=== PATIENT | female | born 1935 | race Caucasian/White ===

== ENCOUNTER → 2017-07-05 | Outpatient (CLI) | payer BC ==
[~2017-07-05] MED LIST: ASPI81TA28 PO; CHOL100010 PO; COEN10CA4 PO; DILT120C68 PO; GLUC500T35 PO; MULTCHW PO; SYN75 PO
--- NOTE | 2017-07-05 16:09 | MAMMOGRAPHY REPORT ---
BILATERAL DIGITAL SCREENING MAMMOGRAM WITH CAD: 07/05/2017 CLINICAL HISTORY: Routine screening. Patient has no complaints. TECHNIQUE: Current study was also evaluated with a Computer Aided Detection (CAD) system. Bilateral CC and MLO views were obtained. COMPARISON: Comparison is made to exams dated: 07/04/2016 mammogram - [facility], mammogram, 11/24/2013 mammogram, and 08/06/2012 mammogram. BREAST COMPOSITION: The tissue of both breasts is heterogeneously dense, which may obscure small mas ses. FINDINGS: No suspicious masses, calcifications, or areas of architectural distortion are noted in ei ther breast. There has been no significant interval change compared to prior exams. Bilateral benign appearing calcifications are not significantly changed. IMPRESSION: ACR BI-RADS CATEGORY 2: BENIGN There is no mammographic evidence of malignancy. A 1 year screening mammogram is recommended. The pa tient will receive written notification of the results. Approximately 10% of breast cancers are not detected with mammography. A negative mammographic report should not delay biopsy if a clinically suggestive mass is present. Adrienne Walker M.D. ah/:07/05/2017 13:50:21 Physical Therapist Aide: Wendy BAKER(R)(M), [facility] letter sent: Normal 1/2 BI-RADS Code: ACR BI-RADS Category 2: Benign
== END | disposition home or self-care (01) ==
LOC: C.MAMM 13:04
PROVIDERS: ATTEND Family Medicine
DX: Z12.31 Encounter for screening mammogram for malignant neoplasm of breast (principal)

== ENCOUNTER 2025-05-12 06:49 | Observation (INO) ==
--- NOTE | 2025-05-12 07:03 | Emergency Department Note ---
Impression & Plan Chest pain, Abnormal EKG ED Provider Note NAME: DAKSHA HUMPHREY AGE: 89 SEX: F : 1935 ARRIVES VIA: Walk-In INFORMANT: Patient, ED PROVIDER(S): Zeferino Lozano DO CHIEF COMPLAINT: Chest pain HPI: The patient is an 89-year-old female who presented to the emergency department for an evaluation of chest pain. Patient describes anterior chest pain that she describes as a pressure. Patient denies having any nausea or vomiting. She denies having any shortness of breath at this time. She has had no leg swelling. She states she noticed the pain last night before she went to bed. She was able to go to bed but when she woke she still the pain so she decided to come to the emergency department. The patient was seen in our facility earlier this month for back pain. She states that that has since resolved and she notices no back pain or radiation of the chest pain at this time. ROS: See above HPI for pertinent positives & negatives. A total of 10 systems reviewed and were otherwise negative. PAST MEDICAL HISTORY: See Below PAST SURGICAL HISTORY: See Below FAMILY HISTORY: See Below SOCIAL HISTORY: See Below HOME MEDICATIONS: See Below ALLERGIES: See Below VITALS: See Below PHYSICAL EXAMINATION: GENERAL: Patient is awake alert in no acute distress patient is resting comfortably and showing no signs of anxiety EYES: The conjunctivae are clear. The pupils are round and reactive. EARS, NOSE, MOUTH AND THROAT: The nose is without any evidence of any deformity. NECK: The neck is nontender and supple. RESPIRATORY: Normal respiratory effort is noted there is no evidence of wheezing rhonchi or rales CARDIOVASCULAR: Regular rate and rhythm noted there no murmurs rubs or gallops normal S1 normal S2. GASTROINTESTINAL: The abdomen is soft. Abdomen is nontender. MUSCULOSKELETAL/EXTREMITIES: There is no evidence of gross deformity full range of motion is noted in the hips and shoulders. SKIN: There is no obvious evidence of any rash. There are no petechiae, pallor or cyanosis noted. NEUROLOGIC: Patient is awake alert and oriented x3. Gait was steady. MEDICAL DECISION MAKING: The patient is an 89-year-old female who presented to the emergency department for an evaluation of chest pain. The patient described anterior chest pain that she described as a pressure. The patient was treated in the emergency department with aspirin. I discussed the patient's laboratory and radiographic studies with her. I discussed the limitations of the emergency department workup for chest pain with her. Ultimately I do feel the patient may be at higher risk especially given her age and comorbidities. For this reason I discussed her condition with the on-call [facility] hospitalist. They have agreed to evaluate the patient in the emergency department for further management and disposition. Triage Nursing notes reviewed. Prior medical records reviewed Vital Signs: reviewed and remarkable for no significant abnormalities Differential diagnosis: Cardiac ischemia, aortic dissection, pulmonary embolism, pneumothorax, pneumonia, pericarditis, myocarditis, esophageal rupture, GERD, cholecystitis, pancreatitis, musculoskeletal, as well as other pathologies. ER treatment provided: See below Diagnostics interpreted by me: ECG: EKG was obtained in the emergency department. My interpretation is normal sinus rhythm at 84 bpm. There is no ectopy. Nonspecific ST abnormalities were noted. This was compared to a tracing from April 25, 2025. No changes were noted. Cardiac Monitoring: An order was placed for continuous cardiac monitoring. The monitor shows a rate of 71 bpm with sinus rhythm. Laboratory studies: As stated above and show below. Imaging studies: See below. Radiographic imaging was reviewed by myself Consultation(s): I discussed this case with Blanca who is on-call for the [facility] hospitalist group. Past Med/Surg History Problem List (Updated 05/12/25 @ 13:09 by Zeferino Lozano DO) Abnormal EKG (Acute) Chest pain (Acute) History of paroxysmal supraventricular tachycardia Chest pain Allergic rhinitis Depression follow with psychologist Hypothyroidism Mitral valve prolapse Osteoarthritis Endometrioid adenocarcinoma Acquired deviated nasal septum HTN (hypertension) (Chronic) Arthritis (Chronic) Iron deficiency (Chronic) Medical History Nasal bone fracture History of skin cancer nose, face, back areas Hx of cancer of uterus had hysterectomy and no chemo or radiation Irregular heart beat patient only knows it is benign Surgical History History of nasal surgery History of oral surgery anesthesia to repair dental implant Hx of cataract surgery right and left Hx of hysterectomy due to endometrial cancer stage 1A, was TLH/BSO - no chemo or radiation Family History Brother Asthma Son Asthma Other Allergic rhinitis FHx: heart disease Family history of high blood pressure Denies family history of Ovarian cancer Breast cancer Colorectal cancer Social History Smoking Status: Never smoker Second Hand Exposure: No; Do You Dip or Chew Tobacco: No; Hx Alcohol Use: No Hx Substance Use: No Preferred Language: Croatian Communication Ability: Effective Saw Feeder Required: No Beliefs That Will Affect Care: None marital status: Current Living Situation: Spouse current occupational status: retired Feels Safe at Home: Yes Assistive Devices: Glasses Allergies Allergies Allergy/AdvReac Type Severity Reaction Status Date / Time cat dander Allergy Intermediate SNEEZING, Verified 05/12/25 09:56 CONGESTION dog dander Allergy Intermediate SNEEZING, Verified 05/12/25 09:56 CONGESTION mold Allergy Intermediate SNEEZING, Verified 05/12/25 09:56 CONGESTION pollen extracts Allergy Mild Sneezing Unverified 05/12/25 09:56 metoprolol AdvReac Severe INCREASED Verified 05/12/25 09:56 PALPATATIONS/FEVER/CHILLS WITH ONE DOSE DUST Allergy Intermediate SNEEZING, Uncoded 05/12/25 09:56 CONGESTION MILDEW Allergy Intermediate SNEEZING, Uncoded 05/12/25 09:56 CONGESTION Unclassified Drugs Allergy Intermediate METHIOLATE Uncoded 05/12/25 09:56 = ITCHING, REDNESS, SWELLING Environmental Allergy Mild Sneezing Uncoded 05/12/25 09:56 TOOTHPASTES Allergy Unknown CERTAIN Uncoded 05/12/25 09:56 KINDS ONLY Home Meds Home Medications Medication Instructions Recorded Confirmed cholecalciferol (vitamin D3) 25 1,000 unit PO QPM 11/26/18 05/12/25 mcg (1,000 unit) capsule (Vitamin D3) coenzyme Q10 100 mg capsule 100 mg PO QPM 11/26/18 05/12/25 (CoQ-10) glucosamine-chondroitin 500 mg-400 1 cap PO QPM 11/26/18 05/12/25 mg capsule [id number] acid 0.4 1 tab PO QPM 11/26/18 05/12/25 mg-lycopene 300 mcg-lutein 250 mcg tablet (Centrum Silver) levothyroxine 50 mcg tablet 50 mcg PO QAM 12/31/23 05/12/25 acetaminophen 500 mg tablet 1,000 mg PO DIRECTED PRN Pain 05/09/24 05/12/25 (Tylenol Extra Strength) diltiazem HCl 120 mg 120 mg PO QAM 06/02/24 05/12/25 capsule,extended release 24 hr pseudoephedrine HCl 30 mg tablet 30 mg PO Q6H PRN Congestion 04/29/25 05/12/25 (Sudafed) Previous Rx's Medication Instructions Recorded cyclobenzaprine 10 mg tablet 10 mg PO TID PRN muscle spasm #10 04/25/25 tabs Results & Data (ED) Vital Signs Vital Signs - 24 hr 05/12/25 06:52 05/12/25 07:24 05/12/25 08:09 Temperature 36.2 C L Temperature Source Temporal Artery Scan Pulse Rate 92 H 87 Pulse Rate from SpO2 Sensor Pulse Rhythm Regular Respiratory Rate 18 18 Blood Pressure 140/93 161/94 H Blood Pressure Mean 108 126 Pulse Oximetry 94 94 Oxygen Delivery Method Room Air Room Air Sepsis New/Unexplained Change in Mental Status No Sepsis Action Taken by Nursing No Action Required 05/12/25 08:24 05/12/25 08:30 05/12/25 09:00 Temperature Temperature Source Pulse Rate 68 71 72 Pulse Rate from SpO2 Sensor 67 72 71 Pulse Rhythm Respiratory Rate 17 14 21 Blood Pressure 144/77 H 149/93 H Blood Pressure Mean 99 114 Pulse Oximetry 94 96 93 Oxygen Delivery Method Room Air Room Air Room Air Sepsis New/Unexplained Change in Mental Status Sepsis Action Taken by Nursing 05/12/25 10:00 05/12/25 10:30 05/12/25 11:30 Temperature Temperature Source Pulse Rate 79 86 71 Pulse Rate from SpO2 Sensor 75 86 72 Pulse Rhythm Respiratory Rate 15 12 18 Blood Pressure 126/95 144/94 H 138/100 Blood Pressure Mean 105 106 108 Pulse Oximetry 94 95 95 Oxygen Delivery Method Room Air Room Air Room Air Sepsis New/Unexplained Change in Mental Status Sepsis Action Taken by [facility] Medications Current Medication List: was personally reviewed by me Laboratory Data Attestation: I reviewed the patient's lab results. 05/12/25 07:05 05/12/25 07:05 Lab Results 05/12/25 05/12/25 Range/Units 07:05 09:32 WBC 8.26 (4.8-10.8) K/ul RBC 4.66 (4.20-5.40) M/uL Hgb 13.9 (12.0-16.0) g/dl Hct 41.2 (37.0-47.0) % MCV 88.4 (80.0-100.0) fL MCH 29.8 (25.0-34.0) pg MCHC 33.7 (32.0-36.0) g/dL RDW Std Deviation 46.8 H (36.4-46.3) fL RDW Coeff of Nicolle 14.5 (11.5-14.5) % Plt Count 383 (130-400) K/uL MPV 8.4 L (9.4-12.4) fL Immature Gran % (Auto) 0.2 % Neut % (Auto) 34.9 % Lymph % (Auto) 51.0 % Isabella % (Auto) 8.7 % Eos % (Auto) 4.0 % Baso % (Auto) 1.2 % Neut # (Auto) 2.88 (1.40-6.50) K/uL Lymph # (Auto) 4.21 H (1.20-3.40) K/uL Isabella # (Auto) 0.72 H (0.11-0.59) K/uL Eos # (Auto) 0.33 (0.00-0.50) K/uL Baso # (Auto) 0.10 (0.00-0.20) K/uL Immature Gran # (Auto) 0.02 (0.01-0.20) K/uL PT 10.2 (9.0-12.0) Seconds INR 0.9 (0.9-1.1) APTT 27 (21-31) Seconds PTT Ratio 1.0 Sodium 140 (136-145) mmol/L Potassium 3.6 (3.5-5.1) mmol/L Chloride 106 (98-107) mmol/L Carbon Dioxide 27 (21-32) mmol/L Anion Gap 7 (3-11) BUN 23 (6-23) mg/dl Creatinine 1.13 (0.6-1.2) mg/dl Est Cr Clr Drug Dosing 30.4 ml/min eGFR 46.51 BUN/Creatinine Ratio 20.4 H (10-20) Glucose 90 (70-99(Fasting)) mg/dl Calcium 9.7 (8.6-10.3) mg/dl Total Bilirubin 0.7 (0.2-1.0) mg/dl AST 22 (13-39) U/L ALT 15 (7-52) U/L Alkaline Phosphatase 73 (34-104) U/L Troponin I High Sens 6.9 5.0 (0-14) pg/ml Total Protein 7.4 (6.0-8.3) gm/dl Albumin 4.3 (3.4-5.0) gm/dl Globulin 3.1 (2.5-4.0) gm/dl Albumin/Globulin Ratio 1.4 (0.9-2) Lipase 18 (11-82) U/L Administered Medications Discontinued Medications Al Hydrox/Mg Hydrox/Simethicone (Aluminum/Magnesium Susp 30 Ml Udc) 30 ml PO NOW STA Stop: 05/12/25 06:59 Last Admin: 05/12/25 07:13 Dose: 30 ml Documented By: ELOY Aspirin (Aspirin Chew 324 Mg) 324 mg PO NOW STA Stop: 05/12/25 06:59 Last Admin: 05/12/25 07:13 Dose: 324 mg Documented By: ELOY Imaging Data Attestation: I personally reviewed and interpreted this imaging study as follows: My Impression: 1 view chest x-ray was obtained in the emergency department. My interpretation is no free air or definite infiltrate, final report below. Radiologist's Impression: Chest X-Ray 05/12/25 06:58 EXAM: XR chest 1V portable CLINICAL HISTORY: Chest pain, nonspecific. TECHNIQUE: An X-ray image of the chest is obtained in AP projection. COMPARISON: Study dated 07/07/2024 FINDINGS: Pulmonary Parenchyma: No evidence of consolidation, collapse, or focal opacities. No pulmonary nodules are identified. No evidence of pleural effusion or pleural thickening. Heart and Mediastinum: Cardiomegaly, unchanged Bony Thorax: Bilateral glenohumeral and acromioclavicular arthropathy Bony thorax appears intact without fractures or deformities. Soft Tissues: Soft tissues overlying the chest wall are unremarkable. IMPRESSION: 1. No acute cardiopulmonary abnormalities are identified. 2. No interval changes. Electronically signed by Smooth Brandt 05-12-2025 07:53 AM Discharge Plan Visit Data Chief Complaint: Chest Pain Stated Complaint: CHEST PAIN ED Provider: Zeferino Lozano Discharge Problem: Chest pain, Abnormal EKG Patient Disposition: Being Evaluated by Hospitalist Condition: Good Forms Stand Alone Forms: My [facility] Prescriptions Prescriptions: No Action pseudoephedrine HCl [Sudafed] 30 mg tablet 30 mg PO Q6H PRN (Reason: Congestion) glucosamine-chondroitin 500-400 mg Capsule 1 cap PO QPM cholecalciferol (vitamin D3) [Vitamin D3] 1,000 unit Capsule 1,000 unit PO QPM coenzyme Q10 [CoQ-10] 100 mg Capsule 100 mg PO QPM Centrum Silver 0.4-300-250 mg-mcg-mcg Tablet 1 tab PO QPM levothyroxine 50 mcg tablet 50 mcg PO QAM acetaminophen [Tylenol Extra Strength] 500 mg Tablet 1,000 mg PO DIRECTED PRN (Reason: Pain) cyclobenzaprine 10 mg tablet 10 mg PO TID PRN (Reason: muscle spasm) Qty: 10 0RF diltiazem HCl 120 mg capsule,extended release 24hr 120 mg PO QAM Referrals Referrals: Marilin Van MD [Primary Care Provider] -
[2025-05-12] MEDS: ASPIRIN CHEW 324 MG PO STA (07:13)
[2025-05-12] MEDS: ALUMINUM/MAGNESIUM SUSP 30 ML UDC PO STA ×2 (07:13→14:57)
[2025-05-12 07:38] LABS: Hematocrit (blood only) 41.2 % (37.0-47.0); Hemoglobin 13.9 g/dl (12.0-16.0); Mean Corpuscular Hemoglobin 29.8 pg (25.0-34.0); Mean Corpuscular Volume 88.4 fL (80.0-100.0); Platelet Count 383 K/uL (130-400); RDW Standard Deviation 46.8 fL (36.4-46.3); Red Blood Count 4.66 M/uL (4.20-5.40); White Blood Count 8.26 K/ul (4.8-10.8)
--- NOTE | 2025-05-12 07:54 | XRay Report ---
EXAM: XR chest 1V portable CLINICAL HISTORY: Chest pain, nonspecific. TECHNIQUE: An X-ray image of the chest is obtained in AP projection. COMPARISON: Study dated 07/07/2024 FINDINGS: Pulmonary Parenchyma: No evidence of consolidation, collapse, or focal opacities. No pulmonary nodules are identified. No evidence of pleural effusion or pleural thickening. Heart and Mediastinum: Cardiomegaly, unchanged Bony Thorax: Bilateral glenohumeral and acromioclavicular arthropathy Bony thorax appears intact without fractures or deformities. Soft Tissues: Soft tissues overlying the chest wall are unremarkable. IMPRESSION: 1. No acute cardiopulmonary abnormalities are identified. 2. No interval changes. Electronically signed by Smooth Brandt 05-12-2025 07:53 AM
[2025-05-12 07:59] LABS: Alanine Aminotransferase 15.0 U/L (7-52); Albumin Globulin Ratio 1.4 (0.9-2); Alkaline Phosphatase 73.0 U/L (34-104); Anion Gap 7.0 (3-11); Bilirubin,Total 0.7 mg/dl (0.2-1.0); Blood Urea Nitrogen 23.0 mg/dl (6-23); Calcium 9.7 mg/dl (8.6-10.3); Carbon Dioxide 27.0 mmol/L (21-32); Chloride 106.0 mmol/L (98-107); Creatinine Clr Calc Pharmacy 30.4 ml/min; Globulin 3.1 gm/dl (2.5-4.0); Glucose 90.0 mg/dl (70-99(Fasting)); Lipase 18.0 U/L (11-82); Potassium 3.6 mmol/L (3.5-5.1); Sodium 140.0 mmol/L (136-145); Total Protein 7.4 gm/dl (6.0-8.3)
[2025-05-12 08:06] LABS: Immature Granulocytes # (auto) 0.02 K/uL (0.01-0.20); Immature Granulocytes % (auto) 0.2 %
[2025-05-12 08:09] LABS: INR 0.9 (0.9-1.1); Partial Thromboplastin Time 27 Seconds (21-31); Prothrombin Time 10.2 Seconds (9.0-12.0)
--- NOTE | 2025-05-12 12:16 | Hospitalist Consultation ---
Date of Consultation May 12, 2025 Assessment & Plan Plan Patient is an 89-year-old female with past medical history of hypothyroidism, paroxysmal SVT, mitral valve prolapse, endometrial adenocarcinoma, hypertension, iron deficiency anemia. Patient presented due to chest pressure that persisted throughout the night to have a cardiac evaluation. #chest pain - chest pain vs GERD. EKG showed NSR, no ischemic changes. No notable arrhythmias on telemetry while in ED. Troponin 6.9 -> 5.0. Heart score 2 (age). YOUSIF risk score 1 (age). - ASA chew 324mg PO given in ED - Maalox 30 ml PO given in ED - echocardiogram ordered Patient would like to return home if possible, seems reasonable given low risk HEART and YOUSIF score, as well as negative troponin x2. Also note pain improved with Maalox in ED. Will obtain echocardiogram, if without concerns, safe for discharge home. #GERD - patient with persistent GERD in ED after meal. Reports feeling of food being 'stuck'. - maalox with oral lidocaine ordered - repeat CXR considering food bolus after meal Dispo: Discharge home after echocardiogram History of Present Illness Reason for Consultation: Chest Pain Requesting Physician: Dr. Lozano History of Present Illness Patient is an 89-year-old female with past medical history of hypothyroidism, paroxysmal SVT, mitral valve prolapse, endometrial adenocarcinoma, hypertension, iron deficiency anemia. Patient presented due to chest pressure that persisted throughout the night to have a cardiac evaluation. Patient seen at bedside with her present. She stated that she was gardening yesterday which she felt fatigued after, this is typical for her after approximately 30 minutes of gardening work. She then had dinner and felt like she had much central chest pressure that she thought was indigestion. She went to bed as normal thinking not much of the chest pressure. When she woke up approximately 7 hours later, she noticed that it was still there, and with previously working in a cardiac rehab, she wanted to come in for further evaluation. She stated she denies any chest pain it more so feels like a pressure and is since improved with Maalox and aspirin in the ED, however still noticeable. She denies any shortness of breath, dizziness, lightheadedness, increased fatigue, chest pain/pressure with exertion recently, edema. She does not use nicotine products. She did not take her home medications this morning. She did have a similar evaluation approximately 1 year ago with negative troponins, no echocardiogram was performed at this time; it appears patient has never had an echocardiogram. EKG shows NSR with ST depressions similar to previous and artifact noted. Initial troponin 6.9, down trended to 5.0. Heart score is 2 given patient's age. CXR is negative. patient is agreeable to have echocardiogram and hopeful to discharge home this evening. Allergies Allergy/AdvReac Type Severity Reaction Status Date / Time cat dander Allergy Intermediate SNEEZING, Verified 05/12/25 09:56 CONGESTION dog dander Allergy Intermediate SNEEZING, Verified 05/12/25 09:56 CONGESTION mold Allergy Intermediate SNEEZING, Verified 05/12/25 09:56 CONGESTION pollen extracts Allergy Mild Sneezing Unverified 05/12/25 09:56 metoprolol AdvReac Severe INCREASED Verified 05/12/25 09:56 PALPATATIONS/FEVER/CHILLS WITH ONE DOSE DUST Allergy Intermediate SNEEZING, Uncoded 05/12/25 09:56 CONGESTION MILDEW Allergy Intermediate SNEEZING, Uncoded 05/12/25 09:56 CONGESTION Unclassified Drugs Allergy Intermediate METHIOLATE Uncoded 05/12/25 09:56 = ITCHING, REDNESS, SWELLING Environmental Allergy Mild Sneezing Uncoded 05/12/25 09:56 TOOTHPASTES Allergy Unknown CERTAIN Uncoded 05/12/25 09:56 KINDS ONLY Home Medications Medication Instructions Recorded Confirmed Type cholecalciferol (vitamin D3) 25 1,000 unit PO QPM 11/26/18 05/12/25 History mcg (1,000 unit) capsule (Vitamin D3) coenzyme Q10 100 mg capsule 100 mg PO QPM 11/26/18 05/12/25 History (CoQ-10) glucosamine-chondroitin 500 mg-400 1 cap PO QPM 11/26/18 05/12/25 History mg capsule [id number]-nvvoq acid 0.4 1 tab PO QPM 11/26/18 05/12/25 History mg-lycopene 300 mcg-lutein 250 mcg tablet (Centrum Silver) levothyroxine 50 mcg tablet 50 mcg PO QAM 12/31/23 05/12/25 History acetaminophen 500 mg tablet 1,000 mg PO DIRECTED PRN Pain 05/09/24 05/12/25 History (Tylenol Extra Strength) diltiazem HCl 120 mg 120 mg PO QAM 06/02/24 05/12/25 History capsule,extended release 24 hr cyclobenzaprine 10 mg tablet 10 mg PO TID PRN muscle spasm #10 04/25/25 05/12/25 Rx tabs pseudoephedrine HCl 30 mg tablet 30 mg PO Q6H PRN Congestion 04/29/25 05/12/25 History (Sudafed) Patient History Medical History Nasal bone fracture History of skin cancer nose, face, back areas Hx of cancer of uterus had hysterectomy and no chemo or radiation Irregular heart beat patient only knows it is benign Surgical History History of nasal surgery History of oral surgery anesthesia to repair dental implant Hx of cataract surgery right and left Hx of hysterectomy due to endometrial cancer stage 1A, was TLH/BSO - no chemo or radiation Family History Brother Asthma Son Asthma Other Allergic rhinitis FHx: heart disease Family history of high blood pressure Denies family history of Ovarian cancer Breast cancer Colorectal cancer Social History Smoking Status: Never smoker Second Hand Exposure: No; Do You Dip or Chew Tobacco: No; Hx Alcohol Use: No Hx Substance Use: No Preferred Language: Italian Communication Ability: Effective Director Internal Control Required: No Beliefs That Will Affect Care: None marital status: Current Living Situation: Spouse current occupational status: retired Feels Safe at Home: Yes Assistive Devices: Glasses Review of Systems Review of Systems: see HPI Physical Exam Physical Exam: The patient is awake, alert and oriented 3, well developed and well nourished, normocephalic and atraumatic, in no acute distress. Non-toxic appearing. HEENT- EOMI, mucous membranes moist. Hearing grossly intact. Heart-normal S1 and S2. No murmurs, rubs or gallops. Lungs-clear bilaterally, no respiratory distress, no accessory muscle use. Abdomen-normal bowel sounds and soft. No ascites noted. Non-tender. Extremities- no clubbing, cyanosis, or edema. Rheumatologic-normal range of motion. Psychiatric-normal affect. Results & Data Results & Data Vital Signs (Past 12 Hours) Vital Signs Temp Pulse Resp BP Pulse Ox O2 Del Method 05/12/25 11:30 71 18 138/100 95 Room Air 05/12/25 10:30 86 12 144/94 H 95 Room Air 05/12/25 10:00 79 15 126/95 94 Room Air 05/12/25 09:00 72 21 149/93 H 93 Room Air 05/12/25 08:30 71 14 144/77 H 96 Room Air 05/12/25 08:24 68 17 94 Room Air 05/12/25 08:09 161/94 H 05/12/25 07:24 87 18 94 Room Air 05/12/25 06:52 36.2 C L 92 H 18 140/93 94 Room Air Laboratory Results Reviewed CBC, PT/INR, CMP, troponin Diagnostic Findings reviewed CXR Medications Administered EDMaalox 30 mL p.o., aspirin 324 Mg p.o. ECG Additional Comments: NSR, some artifact noted Rate 84 QTc 418 PG Care Time/CCT Total # of Minutes Spent Total Time Spent with Patient: Total time spent is greater than 50% in coordination of care (as documented) at patient's floor/unit and/or counseling patient: Coding Level of Care Code 61127 IN/OBS CONSULT LVL 5,80M
[2025-05-12] MEDS: FAMOTIDINE 20MG IV PUSH 20 MG/5 ML SYR IV STA ×2 (14:20→16:39)
[2025-05-12] MEDS: LIDOCAINE VISCOUS 2% 15 ML UDC MT ONE (14:56)
--- NOTE | 2025-05-12 15:34 | XRay Report ---
XR chest 1V portable CLINICAL HISTORY: Food bolus COMPARISON STUDY: 05/12/2025 FINDINGS: Heart size and pulmonary vasculature are normal. No consolidation or pleural effusion. No p neumothorax. IMPRESSION: No acute findings. ACT 112: Negative or not required by law. Electronically signed by: Hernesto Ga M.D. 05/12/2025 3:32 PM
--- NOTE | 2025-05-12 16:14 | History & Physical Report ---
<Statement entered by Joi Ruiz MD - 05/12/25 16:55> 89 y/o woman with hypertension and history of PSVT on diltiazem who came to ED with chest pressure. Onset was after a meal last night. Substernal/lower sternal feels like it goes to the back and that she can't swallow. Slept last night but on awakening pain was present again. Has had recent ED visits for the same, had resolved after nitro. Treated with maalox, IV pepcid, GI cocktail with maalox and lidocaine. Despite this has had recurrent and persistent symptoms. Symptoms recurred after trying to eat 2 bites of lunch. Feels like she cannot get maalox pills or food down. Gave SL NTG 0.4 and was hypertensive at the time, BP dropped to 90s. Presentation is consistent with esophageal dysphagia or spasm. Serial EKGs which I personally reviewed and HS-troponin without evidence of ACS, low risk for MACE and TTE pending. Not hypoxic and not dyspneic. Aortic dissection or PE is unlikely cause of her chest pain. At time of my exam she was comfortable, sitting on EOB, AOx4, lungs CTAB and normal WOB, heart regular without mrg, no chest wall or abdominal tenderness, NABS. A/P: Esophageal dysphagia / esophageal spasm - could have food impaction or pill esophagitis, esophagitis or ulcer, anatomical problem such as ring web or stricture. Denies chronic GERD symptoms and not on PPI/H2 at baseline -ntg, maalox and pepcid IV have not resolved, currently severe pain so will use IV morphine if BP adequate -continue bid IV PPI -consult gastroenterology -clears, npo after midnight HTN -has been hypertensive because she did not take dilt this AM, now hypotensive p nitro and getting IV fluids Date of Service May 12, 2025 Assessment & Plan (1) GERD (gastroesophageal reflux disease): (2) Esophageal dysmotility: (3) Chest pain: Plan * addendum - BP dropped to 90/55 after nitroglycerin, NSS 500 mL bolus ordered. Patient with persistent pain, additional 20mg IV Pepcid ordered as well as pantoprazole 40mg IV. Patient with persistent intolerable pain, unable to tolerate PO intake, 2mg IV morphine ordered - will add prn overnight. Patient is an 89-year-old female with past medical history of hypothyroidism, paroxysmal SVT, mitral valve prolapse, endometrial adenocarcinoma, hypertension, iron deficiency anemia. Patient presented due to chest pressure that persisted throughout the night to have a cardiac evaluation however determined patient's symptoms are more concerning for esophageal spasm and admitting for GI workup. #GERD - patient with persistent GERD in ED after meal. Reports feeling of food being 'stuck'. Patient without significant history of GERD and with sudden onset 05/11. - maalox with oral lidocaine and SL Nitroglycerin ordered to assist with likely esophageal spasm - repeat CXR considering food bolus after meal negative - GI consulted - IV Protonix BID ordered - clear diet - NPO after midnight - hold nonessential PO medications #chest pain - chest pain vs GERD. EKG showed NSR, no ischemic changes. No notable arrhythmias on telemetry while in ED. Troponin 6.9 -> 5.0. Heart score 2 (age). YOUSIF risk score 1 (age). - ASA chew 324mg PO given in ED - Maalox 30 ml PO given in ED - echocardiogram ordered #paroxysmal SVT/ HTN - continue diltiazem VTE ppx: SCDs, low risk Dispo: med surg obs Admission and Anticipated Discharge Date Admission Date: 05/12/25 History of Present Illness Chief Complaint: chest pain Primary Care Provider: Marilin Van MD Patient is an 89-year-old female with past medical history of hypothyroidism, paroxysmal SVT, mitral valve prolapse, endometrial adenocarcinoma, hypertension, iron deficiency anemia. Patient presented due to chest pressure that persisted throughout the night to have a cardiac evaluation. Patient seen at bedside with her present. She stated that she was gardening yesterday which she felt fatigued after, this is typical for her after approximately 30 minutes of gardening work. She then had dinner and felt like she had much central chest pressure that she thought was indigestion. She went to bed as normal thinking not much of the chest pressure. When she woke up approximately 7 hours later, she noticed that it was still there, and with previously working in a cardiac rehab, she wanted to come in for further evaluation. She stated she denies any chest pain it more so feels like a pressure and is since improved with Maalox and aspirin in the ED, however still noticeable. She denies any shortness of breath, dizziness, lightheadedness, increased fatigue, chest pain/pressure with exertion recently, edema. She does not use nicotine products. She did not take her home medications this morning. She did have a similar evaluation approximately 1 year ago with negative troponins, no echocardiogram was performed at this time; it appears patient has never had an echocardiogram. EKG shows NSR with ST depressions similar to previous and artifact noted. Initial troponin 6.9, down trended to 5.0. Heart score is 2 given patient's age. CXR is negative. patient is agreeable to have echocardiogram and hopeful to discharge home this evening. patient reevaluated after lunch. With persistent GERD type symptoms and feeling of food being "stuck "in throat after lunch. she felt as though she was unable to tolerate the oral Maalox due to this feeling. Will admit and consult GI for esophageal dysmotility. Repeat CXR and EKG negative for acute changes. Allergies Allergy/AdvReac Type Severity Reaction Status Date / Time cat dander Allergy Intermediate SNEEZING, Verified 05/12/25 09:56 CONGESTION dog dander Allergy Intermediate SNEEZING, Verified 05/12/25 09:56 CONGESTION mold Allergy Intermediate SNEEZING, Verified 05/12/25 09:56 CONGESTION pollen extracts Allergy Mild Sneezing Unverified 05/12/25 09:56 metoprolol AdvReac Severe INCREASED Verified 05/12/25 09:56 PALPATATIONS/FEVER/CHILLS WITH ONE DOSE DUST Allergy Intermediate SNEEZING, Uncoded 05/12/25 09:56 CONGESTION MILDEW Allergy Intermediate SNEEZING, Uncoded 05/12/25 09:56 CONGESTION Unclassified Drugs Allergy Intermediate METHIOLATE Uncoded 05/12/25 09:56 = ITCHING, REDNESS, SWELLING Environmental Allergy Mild Sneezing Uncoded 05/12/25 09:56 TOOTHPASTES Allergy Unknown CERTAIN Uncoded 05/12/25 09:56 KINDS ONLY Home Medications Medication Instructions Recorded Confirmed Type cholecalciferol (vitamin D3) 25 1,000 unit PO QPM 11/26/18 05/12/25 History mcg (1,000 unit) capsule (Vitamin D3) coenzyme Q10 100 mg capsule 100 mg PO QPM 11/26/18 05/12/25 History (CoQ-10) glucosamine-chondroitin 500 mg-400 1 cap PO QPM 11/26/18 05/12/25 History mg capsule vznkwiis-big-[id number] acid 0.4 1 tab PO QPM 11/26/18 05/12/25 History mg-lycopene 300 mcg-lutein 250 mcg tablet (Centrum Silver) levothyroxine 50 mcg tablet 50 mcg PO QAM 12/31/23 05/12/25 History acetaminophen 500 mg tablet 1,000 mg PO DIRECTED PRN Pain 05/09/24 05/12/25 History (Tylenol Extra Strength) diltiazem HCl 120 mg 120 mg PO QAM 06/02/24 05/12/25 History capsule,extended release 24 hr cyclobenzaprine 10 mg tablet 10 mg PO TID PRN muscle spasm #10 04/25/25 05/12/25 Rx tabs pseudoephedrine HCl 30 mg tablet 30 mg PO Q6H PRN Congestion 04/29/25 05/12/25 History (Sudafed) Past Med/Surg History Problem List (Updated 05/12/25 @ 16:21 by Mindi Patino PA-C) Esophageal dysmotility GERD (gastroesophageal reflux disease) Abnormal EKG (Acute) Chest pain (Acute) History of paroxysmal supraventricular tachycardia Chest pain Allergic rhinitis Depression follow with psychologist Hypothyroidism Mitral valve prolapse Osteoarthritis Endometrioid adenocarcinoma Acquired deviated nasal septum HTN (hypertension) (Chronic) Arthritis (Chronic) Iron deficiency (Chronic) Medical History Nasal bone fracture History of skin cancer nose, face, back areas Hx of cancer of uterus had hysterectomy and no chemo or radiation Irregular heart beat patient only knows it is benign Surgical History History of nasal surgery History of oral surgery anesthesia to repair dental implant Hx of cataract surgery right and left Hx of hysterectomy due to endometrial cancer stage 1A, was TLH/BSO - no chemo or radiation Family History Brother Asthma Son Asthma Other Allergic rhinitis FHx: heart disease Family history of high blood pressure Denies family history of Ovarian cancer Breast cancer Colorectal cancer Social History Smoking Status: Never smoker Second Hand Exposure: No; Do You Dip or Chew Tobacco: No; Hx Alcohol Use: No Hx Substance Use: No Preferred Language: Maori Communication Ability: Effective Admitting Counselor Required: No Beliefs That Will Affect Care: None marital status: Current Living Situation: Spouse current occupational status: retired Feels Safe at Home: Yes Assistive Devices: Glasses Review of Systems Review of Systems: see HPI Physical Exam Physical Exam: The patient is awake, alert and oriented 3, well developed and well nourished, normocephalic and atraumatic, in no acute distress. Non-toxic appearing. HEENT- EOMI, mucous membranes moist. Hearing grossly intact. Heart-normal S1 and S2. No murmurs, rubs or gallops. Lungs-clear bilaterally, no respiratory distress, no accessory muscle use. Abdomen-normal bowel sounds and soft. No ascites noted. Non-tender. Extremities- no clubbing, cyanosis, or edema. Rheumatologic-normal range of motion. Psychiatric-normal affect. Results & Data Results & Data Vital Signs (Past 12 Hours) Vital Signs Temp Pulse Resp BP Pulse Ox O2 Del Method 05/12/25 16:00 140/108 H 05/12/25 15:48 20 140/96 95 Room Air 05/12/25 14:06 21 96 Room Air 05/12/25 14:00 139/104 H 05/12/25 13:36 70 29 H 142/102 H 93 Room Air 05/12/25 12:30 65 16 141/92 H 94 Room Air 05/12/25 11:30 71 18 138/100 95 Room Air 05/12/25 10:30 86 12 144/94 H 95 Room Air 05/12/25 10:00 79 15 126/95 94 Room Air 05/12/25 09:00 72 21 149/93 H 93 Room Air 05/12/25 08:30 71 14 144/77 H 96 Room Air 05/12/25 08:24 68 17 94 Room Air 05/12/25 08:09 161/94 H 05/12/25 07:24 87 18 94 Room Air 05/12/25 06:52 36.2 C L 92 H 18 140/93 94 Room Air Laboratory Results reviewed cbc, cmp Diagnostic Findings reviewed cxr ECG Additional Comments: NSR, some artifact noted Rate 84 QTc 418 Code Status & VTE Plan Code Status dnr/dni VTE Prophylaxis Plan VTE Prophylaxis will be ordered: Yes PG Care Time/CCT Total # of Minutes Spent Total Time Spent with Patient: Total time spent is greater than 50% in coordination of care (as documented) at patient's floor/unit and/or counseling patient: Coding Level of Care Code 55599 INT INP/OBS CARE 375MIN Diagnoses GERD (gastroesophageal reflux disease) K21.9 Esophageal dysmotility K22.4 Chest pain R07.9
[2025-05-12] MEDS: PANTOprazole 40 MG/10 ML SYR IV ONE (16:19)
[2025-05-12] MEDS: NITROGLYCERIN SL 0.4 MG/TAB TAB SL STA (16:19)
[2025-05-12] MEDS: SODIUM CHLORIDE 0.9% 500 ML IV ONE (16:39)
[2025-05-12] MEDS: MoRPHine SULFATE 2 MG/ML CARP IV STA ×2 (16:49→17:00)
[2025-05-12] MEDS: FAMOTIDINE 20MG/5ML IV PUSH IV ONE (16:58)
[2025-05-12] MEDS ORDERED: MoRPHine SULFATE 2 MG/ML CARP IV PRN (18:04)
[2025-05-12] MEDS ORDERED: ACETAMINOPHEN 1,000 MG/100 ML VIAL IV PRN (18:04)
[2025-05-12] MEDS ORDERED: ONDANSETRON INJ 2 MG/ML 2 ML VIAL IV PRN (18:04)
[2025-05-12] MEDS: PANTOprazole 40 MG/10 ML SYR IV SCH (20:18)
[2025-05-13 07:53] LABS: Hematocrit (blood only) 35.2 % (37.0-47.0); Hemoglobin 12.1 g/dl (12.0-16.0); Immature Granulocytes # (auto) 0.02 K/uL (0.01-0.20); Immature Granulocytes % (auto) 0.2 %; Mean Corpuscular Hemoglobin 30.6 pg (25.0-34.0); Mean Corpuscular Volume 88.9 fL (80.0-100.0); Platelet Count 339 K/uL (130-400); RDW Standard Deviation 46.8 fL (36.4-46.3); Red Blood Count 3.96 M/uL (4.20-5.40); White Blood Count 8.95 K/ul (4.8-10.8)
[2025-05-13 08:08] LABS: Anion Gap 7.0 (3-11); Blood Urea Nitrogen 23.0 mg/dl (6-23); Calcium 8.8 mg/dl (8.6-10.3); Carbon Dioxide 27.0 mmol/L (21-32); Chloride 106.0 mmol/L (98-107); Creatinine Clr Calc Pharmacy 32.7 ml/min; Glucose 79.0 mg/dl (70-99(Fasting)); Potassium 3.9 mmol/L (3.5-5.1); Sodium 140.0 mmol/L (136-145)
--- NOTE | 2025-05-13 10:00 | Gastrointestinal Consultation ---
Date of Consultation May 13, 2025 Assessment & Plan (1) GERD (gastroesophageal reflux disease): 89 year old female with history of hypothyroidism, paroxysmal SVT, mitral valve prolapse, endometrial adenocarcinoma, hypertension, iron deficiency anemia and others below admitted w/ chest pain/epigastric pain yesterday, resolved w/ episodes of nausea/vomiting. NPO Plan for diagnostic EGD Further recommendations/plans following EGD evaluation I spent a total of 60 minutes on the date of service in review of patient's record, and previously obtained information in person and appropriate medical visit, discussion and education of plan, with patient and/or caregiver, placing orders for tests/referral/procedures as medically necessary and documentation of pertinent clinical information in patient's medical records for their visit today. History of Present Illness Reason for Consultation: Esophageal dysmotility, gerd like sx Requesting Physician: Joi Ruiz MD Attending Physician: Joi Ruiz MD History of Present Illness 89 year old female with history of hypothyroidism, paroxysmal SVT, mitral valve prolapse, endometrial adenocarcinoma, hypertension, iron deficiency anemia and ot hesr below admitted w/ chest pain - negative cardiac workup. GI asked to evaluate. Pt was seen and evaluated, chart reviewed. Poor historian. She reports severe, epigastric pain. This has since resolved. She notes she had an episode of nausea/vomiting yesterday and felt much improved after. Denies painful or difficult swallowing. She denies EGD/Colonoscopy recently. Allergies Allergy/AdvReac Type Severity Reaction Status Date / Time cat dander Allergy Intermediate SNEEZING, Verified 05/12/25 09:56 CONGESTION dog dander Allergy Intermediate SNEEZING, Verified 05/12/25 09:56 CONGESTION mold Allergy Intermediate SNEEZING, Verified 05/12/25 09:56 CONGESTION pollen extracts Allergy Mild Sneezing Unverified 05/12/25 09:56 metoprolol AdvReac Severe INCREASED Verified 05/12/25 09:56 PALPATATIONS/FEVER/CHILLS WITH ONE DOSE DUST Allergy Intermediate SNEEZING, Uncoded 05/12/25 09:56 CONGESTION MILDEW Allergy Intermediate SNEEZING, Uncoded 05/12/25 09:56 CONGESTION Unclassified Drugs Allergy Intermediate METHIOLATE Uncoded 05/12/25 09:56 = ITCHING, REDNESS, SWELLING Environmental Allergy Mild Sneezing Uncoded 05/12/25 09:56 TOOTHPASTES Allergy Unknown CERTAIN Uncoded 05/12/25 09:56 KINDS ONLY Home Medications Medication Instructions Recorded Confirmed Type cholecalciferol (vitamin D3) 25 1,000 unit PO QPM 11/26/18 05/12/25 History mcg (1,000 unit) capsule (Vitamin D3) coenzyme Q10 100 mg capsule 100 mg PO QPM 11/26/18 05/12/25 History (CoQ-10) glucosamine-chondroitin 500 mg-400 1 cap PO QPM 11/26/18 05/12/25 History mg capsule uhhrqrww-qyz-rjwnw acid 0.4 1 tab PO QPM 11/26/18 05/12/25 History mg-lycopene 300 mcg-lutein 250 mcg tablet (Centrum Silver) levothyroxine 50 mcg tablet 50 mcg PO QAM 12/31/23 05/12/25 History acetaminophen 500 mg tablet 1,000 mg PO DIRECTED PRN Pain 05/09/24 05/12/25 History (Tylenol Extra Strength) diltiazem HCl 120 mg 120 mg PO QAM 06/02/24 05/12/25 History capsule,extended release 24 hr cyclobenzaprine 10 mg tablet 10 mg PO TID PRN muscle spasm #10 04/25/25 05/12/25 Rx tabs pseudoephedrine HCl 30 mg tablet 30 mg PO Q6H PRN Congestion 04/29/25 05/12/25 History (Sudafed) Patient History Medical History Nasal bone fracture History of skin cancer nose, face, back areas Hx of cancer of uterus had hysterectomy and no chemo or radiation Irregular heart beat patient only knows it is benign Surgical History History of nasal surgery History of oral surgery anesthesia to repair dental implant Hx of cataract surgery right and left Hx of hysterectomy due to endometrial cancer stage 1A, was TLH/BSO - no chemo or radiation Family History Brother Asthma Son Asthma Other Allergic rhinitis FHx: heart disease Family history of high blood pressure Denies family history of Ovarian cancer Breast cancer Colorectal cancer Social History Smoking Status: Never smoker Second Hand Exposure: No; Do You Dip or Chew Tobacco: No; Hx Alcohol Use: Yes Alcohol type: beer, wine and hard liquor Hx Substance Use: No Preferred Language: Peruvian Communication Ability: Effective Energy Conservation Specialist Required: No Beliefs That Will Affect Care: None marital status: Current Living Situation: Spouse current occupational status: retired Other Information That Helps Us Care for You: No Feels Safe at Home: Yes Safety Concerns: Feels Safe At This Time Assistive Devices: Glasses Review of Systems Review of Systems: All other findings negative except as noted in HPI. Physical Exam Constitutional: WD/WN, vitals as above Respiratory: normal respiratory effort, lungs clear to auscultation Gastrointestinal (Abdomen): normal bowel sounds, soft, nontender, no hepatosplenomegaly Skin: no rashes, warm and dry Results & Data Vital Signs (Past 12 Hours) Vital Signs Temp Pulse Resp BP Pulse Ox O2 Del Method 05/13/25 07:05 98.1 F 61 18 148/75 H 94 Room Air Laboratory Results 05/13/25 05/12/25 Range/Units 06:45 09:32 WBC 8.95 (4.8-10.8) K/ul RBC 3.96 L (4.20-5.40) M/uL Hgb 12.1 (12.0-16.0) g/dl Hct 35.2 L (37.0-47.0) % MCV 88.9 (80.0-100.0) fL MCH 30.6 (25.0-34.0) pg MCHC 34.4 (32.0-36.0) g/dL RDW Std Deviation 46.8 H (36.4-46.3) fL RDW Coeff of Nicolle 14.4 (11.5-14.5) % Plt Count 339 (130-400) K/uL MPV 8.8 L (9.4-12.4) fL Immature Gran % (Auto) 0.2 % Neut % (Auto) 40.8 % Lymph % (Auto) 45.3 % Swift % (Auto) 10.5 % Eos % (Auto) 2.3 % Baso % (Auto) 0.9 % Neut # (Auto) 3.65 (1.40-6.50) K/uL Lymph # (Auto) 4.05 H (1.20-3.40) K/uL Swift # (Auto) 0.94 H (0.11-0.59) K/uL Eos # (Auto) 0.21 (0.00-0.50) K/uL Baso # (Auto) 0.08 (0.00-0.20) K/uL Immature Gran # (Auto) 0.02 (0.01-0.20) K/uL Sodium 140 (136-145) mmol/L Potassium 3.9 (3.5-5.1) mmol/L Chloride 106 (98-107) mmol/L Carbon Dioxide 27 (21-32) mmol/L Anion Gap 7 (3-11) BUN 23 (6-23) mg/dl Creatinine 1.05 (0.6-1.2) mg/dl Est Cr Clr Drug Dosing 32.7 ml/min eGFR 50.79 BUN/Creatinine Ratio 21.9 H (10-20) Glucose 79 (70-99(Fasting)) mg/dl Calcium 8.8 (8.6-10.3) mg/dl Troponin I High Sens 5.0 (0-14) pg/ml PG Care Time/CCT Total # of Minutes Spent Total Time Spent with Patient: Total time spent is greater than 50% in coordination of care (as documented) at patient's floor/unit and/or counseling patient: Coding Level of Care Code 60482 INT INP/OBS CARE 2/55MIN Diagnoses GERD (gastroesophageal reflux disease) K21.9
--- NOTE | 2025-05-13 10:40 | Anesthesiology Consultation ---
Date of Service May 13, 2025 Assessment & Plan (1) Encounter for pre-operative examination: Chart Review Chart Review: Acceptable Risk for Surgery History Surgery Operation Date: 05/13/25 16:30 Proposed Procedures p Esophagogastroduodenoscopy Dr. Ryan Davis MD Height/Weight Height: 5 ft 5 in Weight: 65.4 kg Allergies Allergy/AdvReac Type Severity Reaction Status Date / Time cat dander Allergy Intermediate SNEEZING, Verified 05/12/25 09:56 CONGESTION dog dander Allergy Intermediate SNEEZING, Verified 05/12/25 09:56 CONGESTION mold Allergy Intermediate SNEEZING, Verified 05/12/25 09:56 CONGESTION pollen extracts Allergy Mild Sneezing Unverified 05/12/25 09:56 metoprolol AdvReac Severe INCREASED Verified 05/12/25 09:56 PALPATATIONS/FEVER/CHILLS WITH ONE DOSE DUST Allergy Intermediate SNEEZING, Uncoded 05/12/25 09:56 CONGESTION MILDEW Allergy Intermediate SNEEZING, Uncoded 05/12/25 09:56 CONGESTION Unclassified Drugs Allergy Intermediate METHIOLATE Uncoded 05/12/25 09:56 = ITCHING, REDNESS, SWELLING Environmental Allergy Mild Sneezing Uncoded 05/12/25 09:56 TOOTHPASTES Allergy Unknown CERTAIN Uncoded 05/12/25 09:56 KINDS ONLY Medications Home Medications Medication Instructions Recorded Confirmed Last Taken cholecalciferol (vitamin D3) 25 1,000 unit PO QPM 11/26/18 05/12/25 05/11/25 mcg (1,000 unit) capsule (Vitamin D3) coenzyme Q10 100 mg capsule 100 mg PO QPM 11/26/18 05/12/25 05/11/25 (CoQ-10) glucosamine-chondroitin 500 mg-400 1 cap PO QPM 11/26/18 05/12/25 05/11/25 mg capsule ymzfypfg-lxo-gcump acid 0.4 1 tab PO QPM 11/26/18 05/12/25 05/11/25 mg-lycopene 300 mcg-lutein 250 mcg tablet (Centrum Silver) levothyroxine 50 mcg tablet 50 mcg PO QAM 12/31/23 05/12/25 05/11/25 acetaminophen 500 mg tablet 1,000 mg PO DIRECTED PRN Pain 05/09/24 05/12/25 05/11/25 (Tylenol Extra Strength) diltiazem HCl 120 mg 120 mg PO QAM 06/02/24 05/12/25 05/11/25 capsule,extended release 24 hr cyclobenzaprine 10 mg tablet 10 mg PO TID PRN muscle spasm #10 04/25/25 05/12/25 05/11/25 tabs pseudoephedrine HCl 30 mg tablet 30 mg PO Q6H PRN Congestion 04/29/25 05/12/25 05/11/25 (Sudafed) Active Medications Generic Name Dose Route Start Last Admin Trade Name Freq PRN Reason Stop Dose Admin Diltiazem HCl 120 mg 05/13/25 09:00 05/13/25 10:27 Diltiazem Hcl 120 Mg Capcr PO 06/12/25 08:59 120 mg QAM ANUJ Administration Pantoprazole Sodium 40 mg in 10 mls @ 5 mls/min 05/12/25 21:00 05/13/25 10:29 Protonix IV 06/11/25 20:59 5 mls/min BID ANUJ Administration Past Medical History Medical History Nasal bone fracture History of skin cancer nose, face, back areas Hx of cancer of uterus had hysterectomy and no chemo or radiation Irregular heart beat patient only knows it is benign Past Family History Family History Brother Asthma Son Asthma Other Allergic rhinitis FHx: heart disease Family history of high blood pressure Denies family history of Ovarian cancer Breast cancer Colorectal cancer Past Surgical History Surgical History History of nasal surgery History of oral surgery anesthesia to repair dental implant Hx of cataract surgery right and left Hx of hysterectomy due to endometrial cancer stage 1A, was TLH/BSO - no chemo or radiation Social History Smoking Status: Never smoker Do You Dip or Chew Tobacco: No Hx Alcohol Use: Yes Alcohol type: beer, wine and hard liquor alcohol intake frequency: a few times a month Hx Substance Use: No substance use type: does not use Physical Exam Vital Signs Last Vital Signs Temp 36.7 C 05/13/25 07:05 Pulse 75 05/13/25 10:35 Resp 18 05/13/25 07:05 BP 148/75 H 05/13/25 07:05 Pulse Ox 94 05/13/25 07:05 O2 Del Method Room Air 05/13/25 07:05 O2 Flow Rate 2 05/12/25 18:05 Testing Laboratory Results 05/13/25 06:45 05/13/25 06:45 PT 10.2 Seconds (9.0-12.0) 05/12/25 07:05 INR 0.9 (0.9-1.1) 05/12/25 07:05 APTT 27 Seconds (21-31) 05/12/25 07:05 Electrocardiogram Date: 05/12/25 Findings: + NSR @ (75)
[2025-05-13] MEDS ORDERED: SIMETHICONE (ENDO) IR PRN (14:10)
--- NOTE | 2025-05-13 14:11 | History & Physical Report ---
Date of Service May 13, 2025 Assessment & Plan (1) Chest pain: Plan: Patient is safe to proceed with EGD. (2) Esophageal dysmotility: (3) GERD (gastroesophageal reflux disease): Admission and Anticipated Discharge Date Admission Date: May 12, 2025 History of Present Illness Chief Complaint: sscp and foreign body sensation Primary Care Provider: Marilin Van MD 89 y/o with non cardiac cp, foreign body sensation and gerd. EGD eval and possible dil for dysphagia. Allergies Allergy/AdvReac Type Severity Reaction Status Date / Time cat dander Allergy Intermediate SNEEZING, Verified 05/12/25 09:56 CONGESTION dog dander Allergy Intermediate SNEEZING, Verified 05/12/25 09:56 CONGESTION mold Allergy Intermediate SNEEZING, Verified 05/12/25 09:56 CONGESTION pollen extracts Allergy Mild Sneezing Unverified 05/12/25 09:56 metoprolol AdvReac Severe INCREASED Verified 05/12/25 09:56 PALPATATIONS/FEVER/CHILLS WITH ONE DOSE DUST Allergy Intermediate SNEEZING, Uncoded 05/12/25 09:56 CONGESTION MILDEW Allergy Intermediate SNEEZING, Uncoded 05/12/25 09:56 CONGESTION Unclassified Drugs Allergy Intermediate METHIOLATE Uncoded 05/12/25 09:56 = ITCHING, REDNESS, SWELLING Environmental Allergy Mild Sneezing Uncoded 05/12/25 09:56 TOOTHPASTES Allergy Unknown CERTAIN Uncoded 05/12/25 09:56 KINDS ONLY Home Medications Medication Instructions Recorded Confirmed Type cholecalciferol (vitamin D3) 25 1,000 unit PO QPM 11/26/18 05/12/25 History mcg (1,000 unit) capsule (Vitamin D3) coenzyme Q10 100 mg capsule 100 mg PO QPM 11/26/18 05/12/25 History (CoQ-10) glucosamine-chondroitin 500 mg-400 1 cap PO QPM 11/26/18 05/12/25 History mg capsule yfzqpayi-yyy-xozpv acid 0.4 1 tab PO QPM 11/26/18 05/12/25 History mg-lycopene 300 mcg-lutein 250 mcg tablet (Centrum Silver) levothyroxine 50 mcg tablet 50 mcg PO QAM 12/31/23 05/12/25 History acetaminophen 500 mg tablet 1,000 mg PO DIRECTED PRN Pain 05/09/24 05/12/25 History (Tylenol Extra Strength) diltiazem HCl 120 mg 120 mg PO QAM 06/02/24 05/12/25 History capsule,extended release 24 hr cyclobenzaprine 10 mg tablet 10 mg PO TID PRN muscle spasm #10 04/25/25 05/12/25 Rx tabs pseudoephedrine HCl 30 mg tablet 30 mg PO Q6H PRN Congestion 04/29/25 05/12/25 History (Sudafed) Past Med/Surg History Problem List (Updated 05/13/25 @ 13:24 by Kevin Hirsch MD) Esophageal dysmotility GERD (gastroesophageal reflux disease) Abnormal EKG (Acute) Chest pain (Acute) History of paroxysmal supraventricular tachycardia Chest pain Allergic rhinitis Mitral valve prolapse Osteoarthritis Endometrioid adenocarcinoma Acquired deviated nasal septum Arthritis (Chronic) Iron deficiency (Chronic) Medical History (Updated 05/13/25 @ 13:24 by Kevin Hirsch MD) Depression follow with psychologist Hypothyroidism HTN (hypertension) Nasal bone fracture History of skin cancer nose, face, back areas Hx of cancer of uterus had hysterectomy and no chemo or radiation Irregular heart beat patient only knows it is benign Surgical History History of nasal surgery History of oral surgery anesthesia to repair dental implant Hx of cataract surgery right and left Hx of hysterectomy due to endometrial cancer stage 1A, was TLH/BSO - no chemo or radiation Family History Brother Asthma Son Asthma Other Allergic rhinitis FHx: heart disease Family history of high blood pressure Denies family history of Ovarian cancer Breast cancer Colorectal cancer Social History Smoking Status: Never smoker Second Hand Exposure: No; Do You Dip or Chew Tobacco: No; Hx Alcohol Use: Yes Alcohol type: beer, wine and hard liquor Hx Substance Use: No Preferred Language: [place] Communication Ability: Effective 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 Beliefs That Will Affect Care: None marital status: Current Living Situation: Spouse current occupational status: retired Other Information That Helps Us Care for You: No Feels Safe at Home: Yes Safety Concerns: Feels Safe At This Time Assistive Devices: Cane and Walker Review of Systems All systems reviewed & are unremarkable except as noted in HPI & below Physical Exam Physical Exam: Physical Exam: General: Well nourished and well developed in NAD HEENT: EOMI, PERRL Neck: trachea midline, no lad Lungs: CTA b, bilateral bs present Heart: RRR, no M and no edema Abd: soft, NT/ND, NABS Musculoskeletal: no c/c/e, normal strength B Neuro: CN2-12 intact, normal gait, normal strength Psych: normal affect and mood, euthymic. Results & Data Vital Signs (Past 12 Hours) Vital Signs Temp Pulse Resp BP Pulse Ox O2 Del Method 05/13/25 13:13 36.5 C 76 16 176/103 H 97 Room Air 05/13/25 10:35 75 05/13/25 08:30 Room Air 05/13/25 07:05 36.7 C 61 18 148/75 H 94 Room Air Code Status & VTE Plan VTE Prophylaxis Plan VTE Prophylaxis will be ordered: Yes Coding Level of Care Code None Diagnoses Chest pain R07.9 Esophageal dysmotility K22.4 GERD (gastroesophageal reflux disease) K21.9
--- NOTE | 2025-05-13 14:55 | GI REPORT ---
[facility] Patient: DAKSHA HUMPHREY : 1935 Sex at : Female Age: 89 Years Procedure: Upper GI endoscopy Date: 05/13/2025 Attending Physician: Papito Gaviria MD Referring MD: Referred Self; Joi Ruiz Md Indications: - Dysphagia - Esophageal reflux - Chest pain (non cardiac) Medications: - Monitored Anesthesia Care Complications: - No immediate complications. Estimated Blood Loss: - Estimated blood loss: None. Procedure: - Prior to the procedure, a History and Physical was performed, and patient medications and allergies were reviewed. The patient's tolerance of previous anesthesia was also reviewed. The risks and benefits of the procedure and the sedation options and risks were discussed with the patient. All questions were answered, and informed consent was obtained. Prior Anticoagulants: The patient has taken no anticoagulant or antiplatelet agents, last dose was 3 days prior to procedure. ASA Grade Assessment: III - A patient with severe systemic disease. After reviewing the risks and benefits, the patient was deemed in satisfactory condition to undergo the procedure. - The egd scope was introduced through the mouth and advanced to the third part of the duodenum. - The upper GI endoscopy was accomplished without difficulty. - The patient tolerated the procedure well. Findings: - A small hiatal hernia was present. - LA Grade B (one or more mucosal breaks greater than 5 mm, not extending between the tops of two mucosal folds) esophagitis with no bleeding was found at the gastroesophageal junction (on retroflexion). Biopsies were taken with a cold forceps for histology. Estimated blood loss was minimal. - Patchy, white plaques were found at the gastroesophageal junction. Biopsies were taken with a cold forceps for histology. - The entire examined stomach was normal. - The examined duodenum was normal. - The examined esophagus was moderately tortuous. Dilated and tortuous esophagus with Normal LES suggestive of dysmotility and presbyesophagus. Impression: - Small hiatal hernia. - LA Grade B reflux esophagitis with no bleeding. Rule out Bishop's esophagus. Biopsied. - Esophageal plaques were found, consistent with candidiasis. Biopsied. - Normal stomach. - Normal examined duodenum. - Tortuous esophagus. - Dilated and tortuous esophagus with Normal LES suggestive of dysmotility and presbyesophagus. Recommendation: - Discharge patient to home (ambulatory). - Resume previous diet. - Continue present medications. - Await pathology results. - Return to primary care physician as previously scheduled. - Patient has a contact number available for emergencies. The signs and symptoms of potential delayed complications were discussed with the patient. Return to normal activities tomorrow. Written discharge instructions were provided to the patient. - start clotrimazole troches for tanya. Check food carefully. Start soft mechanical diet. Procedure Code(s): - 34694, Esophagogastroduodenoscopy, flexible, transoral; with biopsy, single or multiple Diagnosis Code(s): - R13.10, Dysphagia, unspecified - R07.89, Other chest pain - K44.9, Diaphragmatic hernia without obstruction or gangrene - K21.00, Gastro-esophageal reflux disease with esophagitis, without bleeding - K22.9, Disease of esophagus, unspecified - Q39.9, Congenital malformation of esophagus, unspecified CPT(R) - 2023 copyright [employer] [place] [employer]. All Rights Reserved. The CPT codes, CCI edits and ICD codes generated are intended as suggestions and were generated based on input data. These codes are preliminary and upon payroll consultant review may be revised to meet current compliance and payer requirements. The provider is responsible for the final determination of appropriate codes, and modifiers. Papito Gaviria MD This document has been electronically signed. Note Initiated:05/13/2025 Note Completed:05/13/2025 2:54 PM \\[email or web address]\[email or web address]\Provation\Results\LIVE\[id number]
--- NOTE | 2025-05-13 15:02 | History & Physical Bridge Note ---
Date of Service May 13, 2025 History & Physical Bridge Note s/p EGD. dialated and tortuous esophagus with normal LES. Ge junction with esophagitis and small amount of candidasis. 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 Took a large food bolus that likely got stuck passed and lead to the chest pain. Chew food thoroughly, mechanical soft diet, clotrimazole troches for tanya. GI will sign off, please call with questions. Khadra.
--- NOTE | 2025-05-13 15:03 | Anesthesiology Progress Note ---
Date of Service May 13, 2025 Anesthesia Post Procedure Vital Signs Vital Signs: Temp Pulse Pulse Pulse Resp BP BP 05/13/25 15:01 77 17 153/96 H 05/13/25 14:46 74 18 173/94 H 05/13/25 14:35 80 18 157/83 H 05/13/25 13:13 36.5 C 76 16 176/103 H 05/13/25 10:35 75 05/13/25 08:30 05/13/25 07:05 36.7 C 61 18 148/75 H 05/12/25 19:32 36.6 C 85 18 168/88 H 05/12/25 18:05 05/12/25 18:05 36.4 C L 83 18 147/79 H 05/12/25 17:40 05/12/25 17:27 79 22 159/101 H 05/12/25 17:12 77 30 H 05/12/25 17:06 134/92 05/12/25 17:06 80 23 141/88 H 05/12/25 17:00 137/81 05/12/25 16:54 85 32 H 131/89 05/12/25 16:48 80 21 125/89 05/12/25 16:40 130/95 05/12/25 16:39 76 23 05/12/25 16:34 131/82 05/12/25 16:24 111 H 13 86/71 L 05/12/25 16:20 98 H 15 145/109 H 05/12/25 16:00 140/108 H 05/12/25 15:48 20 140/96 Pulse Ox O2 Del Method O2 Flow Rate 05/13/25 15:01 96 Room Air 05/13/25 14:46 94 Room Air 05/13/25 14:35 97 Room Air 05/13/25 13:13 97 Room Air 05/13/25 10:35 05/13/25 08:30 Room Air 05/13/25 07:05 94 Room Air 05/12/25 19:32 93 Room Air 05/12/25 18:05 Nasal Cannula 2 05/12/25 18:05 95 Nasal Cannula 2 05/12/25 17:40 Nasal Cannula 2 05/12/25 17:27 94 Room Air 05/12/25 17:12 98 Room Air 05/12/25 17:06 05/12/25 17:06 99 Room Air 05/12/25 17:00 05/12/25 16:54 97 Room Air 05/12/25 16:48 99 Room Air 05/12/25 16:40 05/12/25 16:39 05/12/25 16:34 05/12/25 16:24 94 Room Air 05/12/25 16:20 95 Room Air 05/12/25 16:00 05/12/25 15:48 95 Room Air Pain Intensity Chest: Pain Intensity: 5 Transfer of Care Handoff Completed per policy Notes Mental Status: alert / awake / arousable Patient Amnestic to Procedure: Yes Nausea / Vomiting: adequately controlled Pain: adequately controlled Airway Patency, RR, SpO2: stable & adequate BP & HR: stable & adequate Hydration State: stable & adequate Anesthetic Complications: no major complications apparent
[2025-05-13] MEDS: LIDOCAINE 2% 2 ML VIAL/AMP(20MG/ML) INFIL ONE (15:38)
[2025-05-13] MEDS: PROPOFOL IV EMULSION 10 MG/ML 20 ML VIAL IV ONE (15:39)
[2025-05-13] MEDS ORDERED: PROCHLORPERAZINE 5 MG in SYRINGE 4 ML IV PRN (15:48)
[2025-05-13] MEDS: FLUCONAZOLE 100 MG TAB PO SCH (16:05)
--- NOTE | 2025-05-13 16:09 | Hospitalist Progress Note ---
Date of Service May 13, 2025 Assessment & Plan (1) Esophagitis: (2) Esophageal dysmotility: (3) GERD (gastroesophageal reflux disease): (4) Chest pain: Plan Patient is an 89-year-old female with past medical history of hypothyroidism, paroxysmal SVT, mitral valve prolapse, endometrial adenocarcinoma, hypertension, iron deficiency anemia. Patient presented due to chest pain / pressure following eating, serial troponin and EKG not concerning for ACS. Unable to swallow food / pills and having difficulty with liquids # Esophageal dysphagia, probably had esophageal spasm or food impaction to account for the acute pain which resolved after regurgitation # Esophagitis, tanya esophagitis -consulted GI - EGD 05/13 with patulous esophagus c/w esophageal dysmotility, distal esophagitis with white patches suggestive of tanya -continue bid PPI IV -start oral fluconazole 200 mg x 14d -clear liquids diet and try to advance # Noncardiac chest pain - see above - Echo ordered on admission - still not interpreted by cardiology #paroxysmal SVT/ HTN - continue diltiazem Hope for DC home by tomorrow - as soon as tolerating at least full liquid diet SVT ppx - SCDs Admission and Anticipated Discharge Date Admission Date: May 12, 2025 Subjective Last night had severe pain but that resolved after regurgitation of food Feels fine right now while npo No ongoing chest epigastric pain or nausea Physical Exam Physical Exam: Last 24h vitals reviewed GEN: no acute distress, sitting in bed HEENT: pupils equal, sclerae anicteric, moist MM RESP: normal WOB, CTAB CV: reg no mrg ABD: soft/nt/nd +BT : no peters SKIN: warm and dry, no generalized rashes NEURO: AOx person, place, and situation. Face symmetric, speech normal, moves 4 ext spontaneously and equally Results & Data Results & Data Vital Signs (Past 12 Hours) Vital Signs Temp Pulse Resp BP Pulse Ox O2 Del Method 05/13/25 15:26 36.6 C 69 16 166/84 H 93 Room Air 05/13/25 15:01 77 17 153/96 H 96 Room Air 05/13/25 14:46 74 18 173/94 H 94 Room Air 05/13/25 14:35 80 18 157/83 H 97 Room Air 05/13/25 13:13 36.5 C 76 16 176/103 H 97 Room Air 05/13/25 10:35 75 05/13/25 08:30 Room Air 05/13/25 07:05 36.7 C 61 18 148/75 H 94 Room Air PG Care Time/CCT Total # of Minutes Spent Total Time Spent with Patient: Total time spent is greater than 50% in coordination of care (as documented) at patient's floor/unit and/or counseling patient: Coding Level of Care Code 72248 SUB INP/OBS CARE 2/35MIN Diagnoses Esophagitis K20.90 Esophageal dysmotility K22.4 GERD (gastroesophageal reflux disease) K21.9 Chest pain R07.9
--- NOTE | 2025-05-13 16:14 | XCELERA ---
[id number]\[id number]
[2025-05-14 07:08] VITALS: BP 150/88; PULSE 66; RESP 12; TEMP 97.9; O2SAT 94
--- NOTE | 2025-05-14 10:19 | Gastroenterology Progress Note ---
Date of Service May 14, 2025 Assessment & Plan (1) Esophagitis: Plan: 89 year old female with history of hypothyroidism, paroxysmal SVT, mitral valve prolapse, endometrial adenocarcinoma, hypertension, iron deficiency anemia and others below admitted w/ chest pain/epigastric pain yesterday S/P EGD w/ small HH, grade b esophagitis, suspected tanya, dilated/tortuous esophagus w/ normal LES suggestives of dysmotility and presbyesophagus. GERD dietary and life style changes discussed Continue tanya treatment Mechanical soft diet, chew food well Pantoprazole 40 mg once daily Recall GI as needed. I spent a total of 30 minutes on the date of service in review of patient's record, and previously obtained information in person and appropriate medical visit, discussion and education of plan, with patient and/or caregiver, placing orders for tests/referral/procedures as medically necessary and documentation of pertinent clinical information in patient's medical records for their visit today. Admission and Anticipated Discharge Date Admission Date: May 12, 2025 Supervising Physician Co-Signing Physician Notes Patient seen at the bedside getting ready to be discharged. Discussed PPI for acid reflux. Discussed head of the bed elevation 4 inches. After a couple of months of her symptoms or not improved by these methods she should schedule follow-up with Gregory ALVAREZ. Subjective Pt was seen and evaluated, chart reviewed. Feeling well. Tolerating PO intake. No nausea/vomiting. Desires to go home. EGD 2024: - Small hiatal hernia. - LA Grade B reflux esophagitis with no bleeding. Rule out Bishop's esophagus. Biopsied. - Esophageal plaques were found, consistent with candidiasis. Biopsied. - Normal stomach. - Normal examined duodenum. - Tortuous esophagus. - Dilated and tortuous esophagus with Normal LES suggestive of dysmotility and presbyesophagus. Review of Systems Review of Systems: All other findings negative except as noted in HPI. Physical Exam Constitutional: WD/WN, vitals as above Respiratory: normal respiratory effort, lungs clear to auscultation Gastrointestinal (Abdomen): normal bowel sounds, soft, nontender, no hepatosplenomegaly Skin: no rashes, warm and dry Results & Data Results & Data Vital Signs (Past 12 Hours) Vital Signs Temp Pulse Resp BP Pulse Ox O2 Del Method 05/14/25 07:07 97.9 F 66 12 150/88 H 94 Room Air PG Care Time/CCT Total # of Minutes Spent Total Time Spent with Patient: Total time spent is greater than 50% in coordination of care (as documented) at patient's floor/unit and/or counseling patient: Coding Level of Care Code 44887 SUB INP/OBS CARE 11/14MIN Diagnoses Esophagitis K20.90
--- NOTE | 2025-05-15 06:02 | Electrocardiogram Report ---
Test Reason : Blood Pressure : */* mmHG Vent. Rate : 75 BPM Atrial Rate : 75 BPM P-R Int : 162 ms QRS Dur : 88 ms QT Int : 370 ms P-R-T Axes : -21 -8 -1 degrees QTcB Int : 413 ms Normal sinus rhythm with sinus arrhythmia Inferior infarct , age undetermined Abnormal ECG When compared with ECG of 12-May-2025 14:15, (unconfirmed) QRS axis Shifted right Inferior infarct is now Present Confirmed by Ariel Burgess ([id number]) on 05/15/2025 6:02:27 AM Referred By: REFERRED SELF Confirmed By: Ariel Burgess
--- NOTE | 2025-05-15 06:08 | Electrocardiogram Report ---
Test Reason : Blood Pressure : */* mmHG Vent. Rate : 75 BPM Atrial Rate : 75 BPM P-R Int : 156 ms QRS Dur : 96 ms QT Int : 398 ms P-R-T Axes : 51 -43 61 degrees QTcB Int : 444 ms Normal sinus rhythm Left axis deviation Abnormal ECG When compared with ECG of 12-May-2025 07:00, (unconfirmed) QRS axis Shifted left Criteria for Inferior infarct are no longer Present Confirmed by Ariel Burgess ([id number]) on 05/15/2025 6:07:37 AM Referred By: REFERRED SELF Confirmed By: Ariel Burgess
--- NOTE | 2025-05-15 06:29 | Electrocardiogram Report ---
Test Reason : Blood Pressure : */* mmHG Vent. Rate : 84 BPM Atrial Rate : 84 BPM P-R Int : 178 ms QRS Dur : 86 ms QT Int : 354 ms P-R-T Axes : -2 -8 4 degrees QTcB Int : 418 ms Normal sinus rhythm Inferior infarct (cited on or before 25-Apr-2025) Abnormal ECG When compared with ECG of 25-Apr-2025 00:04, No significant change was found Confirmed by Ariel Burgess ([id number]) on 05/15/2025 6:29:33 AM Referred By: REFERRED SELF Confirmed By: Ariel Burgess
--- NOTE | 2025-05-15 18:17 | Discharge Summary ---
Discharge Summary Date of Service May 15, 2025 Principal Dx & Hospital Course #1 = Principal Diagnosis (1) Esophagitis: (2) Esophageal dysmotility: (3) GERD (gastroesophageal reflux disease): (4) Chest pain: Plan 89-year-old female with past medical history of hypothyroidism, paroxysmal SVT, mitral valve prolapse, endometrial adenocarcinoma, hypertension, iron deficiency anemia. Patient presented due to chest pain / pressure following eating, serial troponin and EKG not concerning for ACS. Unable to swallow food / pills and having difficulty with liquids # Esophageal dysphagia, probably had esophageal spasm or food impaction to account for the acute pain which resolved after regurgitation # Esophagitis -initially treated with maalox/GI cocktail, IV PPI but remained unable to swallow. Had severe exacerbation of pain after swallowing two bites of dinner -consulted GI - EGD 05/13 with patulous esophagus c/w esophageal dysmotility, distal esophagitis with white patches suggestive of tanya -continue oral PPI -oral fluconazole 200 mg x 14d -biopsies were pending at discharge - resulted with severe acute esophagitis, fungal hyphae not seen -symptoms much improved prior to discharge and she tolerated advancement to soft diet # Noncardiac chest pain - see above - Echo ordered on admission - was normal #paroxysmal SVT/ HTN - continue diltiazem Admission HPI Per Admitting Provider 89 y/o with non cardiac cp, foreign body sensation and gerd. EGD eval and possible dil for dysphagia. Discharge Exam Last 24h vitals reviewed GEN: no acute distress, sitting in bed HEENT: pupils equal, sclerae anicteric, moist MM RESP: normal WOB, CTAB CV: reg no mrg ABD: soft/nt/nd +BT : no peters SKIN: warm and dry, no generalized rashes NEURO: AOx person, place, and situation. Face symmetric, speech normal, moves 4 ext spontaneously and equally Discharge Plan Discharge Items Patient Disposition: Home - Self-Care Reason For Visit: GERD Discharge Diagnosis: Esophageal dysphagia, esophagitis Condition on Discharge: Good Activity: Resume your previous activity Non-emergency contact: Primary Care Provider Call non-emergency contact if: you have any medication questions and your symptoms worsen Follow-up/Referrals: Marilin Van MD [Primary Care Provider] - 05/27/25 11:05 am (You will see Dr. Rogers for your appointment) Diet: Other - See Diet Comment Addtl Attending Provider Instructions: You were treated for difficulty swallowing, and inflamed esophagus which caused chest pain You had EGD procedure by Dr. Gaviria the microsoft systems engineer to look into your esophagus - it was somewhat dilated and floppy at the end indicating that its not moving food through as well. You also had inflammation in that area (esophagitis) - can be caused by acid reflux but there were also white patches which may indicate yeast (tanya). Usually treating the esophagitis helps a lot with swallowing. Take pantoprazole (acid suppressant) once daily - you probably need to stay on this half-way. Occasionally people have diarrhea or low magnesium from this type of medicine Take fluconazole (anti-yeast) daily for 12 more days - this is usually well tolerated but there are rare cases of liver inflammation Stay on a soft diet at least for the next week or so and chew your food very well. Stay upright, ideally 45-60 minutes after meals and pills Some biopsies were taken - GI clinic should contact you if there is anything requiring specific follow up Your heart Echo was perfect. We didn't find any sign of a heart attack or other problems It was a pleasure taking care of you in the hospital, Joi Mccoyk Pending Studies at Discharge: Yes (esophagus biopsies) Stand-Alone Forms: [facility]Plus, Smoking Cessation Medications and DC Order Prescriptions: New fluconazole [Diflucan] 100 mg Tablet 200 mg PO QAM Qty: 14 0RF pantoprazole 40 mg tablet,delayed release (DR/EC) 40 mg PO DAILY Qty: 30 0RF Continued pseudoephedrine HCl [Sudafed] 30 mg tablet 30 mg PO Q6H PRN (Reason: Congestion) glucosamine-chondroitin 500-400 mg Capsule 1 cap PO QPM cholecalciferol (vitamin D3) [Vitamin D3] 1,000 unit Capsule 1,000 unit PO QPM coenzyme Q10 [CoQ-10] 100 mg Capsule 100 mg PO QPM Centrum Silver 0.4-300-250 mg-mcg-mcg Tablet 1 tab PO QPM levothyroxine 50 mcg tablet 50 mcg PO QAM acetaminophen [Tylenol Extra Strength] 500 mg Tablet 1,000 mg PO DIRECTED PRN (Reason: Pain) cyclobenzaprine 10 mg tablet 10 mg PO TID PRN (Reason: muscle spasm) Qty: 10 0RF diltiazem HCl 120 mg capsule,extended release 24hr 120 mg PO QAM Discharge Orders: Discharge Order (Routine); Ordered 05/14/25 Ordered By: Joi Ruiz Admission Data Admit Date/Time: 05/12/25 16:20 Attending Provider: Joi Ruiz Admit Provider: Joi Ruiz Primary Care Provider: Marilin Van. Other Providers: Joi Ruiz; Arnaud Davis Other Interventions: Discharge Summary Assessment (RN) Last Done: 05/14/25 11:22 Hospital Stay Data Consultations 05/12/25 11:51 ED Decision to Admit Stat 05/12/25 16:10 Consult Gastroenterology Routine Procedures Performed Operation Date: 05/13/25 16:30 Actual Procedures p EGD Biopsy Cytology(Not Applicable) - Papito Gaviria MD Pending Results Patient Have Any Pending Studies at Discharge: Yes (esophagus biopsies) Discharge Instructions Given to Patient (Per Discharging Provider) You were treated for difficulty swallowing, and inflamed esophagus which caused chest pain You had EGD procedure by Dr. Gaviria the microsoft systems engineer to look into your esophagus - it was somewhat dilated and floppy at the end indicating that its not moving food through as well. You also had inflammation in that area (esophagitis) - can be caused by acid reflux but there were also white patches which may indicate yeast (tanya). Usually treating the esophagitis helps a lot with swallowing. Take pantoprazole (acid suppressant) once daily - you probably need to stay on this half-way. Occasionally people have diarrhea or low magnesium from this type of medicine Take fluconazole (anti-yeast) daily for 12 more days - this is usually well tolerated but there are rare cases of liver inflammation Stay on a soft diet at least for the next week or so and chew your food very well. Stay upright, ideally 45-60 minutes after meals and pills Some biopsies were taken - GI clinic should contact you if there is anything requiring specific follow up Your heart Echo was perfect. We didn't find any sign of a heart attack or other problems It was a pleasure taking care of you in the hospital, Joi Ruiz Total Time Total Time Spent Total Time Spent (In Minutes): <30 Coding Level of Care Code 14333 IN/OBS DISCH 30 MIN/LESS Diagnoses Esophagitis K20.90 Esophageal dysmotility K22.4 GERD (gastroesophageal reflux disease) K21.9 Chest pain R07.9
== END 2025-05-14 13:23 | disposition home or self-care (01) ==
LOC: SUATTDRO → ED 06:49 → 3N 06:49